=== PATIENT | male | born 1940 | race Caucasian/White ===

== ENCOUNTER → 2018-06-11 09:23 | Outpatient (CLI) | payer MEDICARE ==
[~2018-06-11 09:23] MED LIST: BAYER CHEWABLE81 MG PO; BRILINTA90 MG PO; EFFIENT10 MG PO; FIBERCON625 MG PO; NORVASC5 MG PO; PROBIOTIC250 MG PO; RANITIDINE HCL150 M1 PO; VITAMIN D31000 UNI2 PO; ZOCOR20 MG PO
[2018-06-20 12:08] VITALS: BMI 25.8
== END | disposition home or self-care (01) ==
LOC: D.HCCARDIO 09:23
DX: I20.9 Angina pectoris, unspecified (principal)

== ENCOUNTER 2018-06-20 11:31 | Outpatient (CLI) | payer MEDICARE ==
[~2018-06-20] VITALS: Ht 177.8 cm; Wt 81.8 kg
--- NOTE | ~2018-06-20 | HEMODYNAMI ---
PATIENT:PALU JARQUIN MEDICAL RECORD: [id number] : 42 LOCATION:[facility] ADMISSION DATE: 06/20/18 Generatedon:06/20/201816:01 Patient name: PAUL JARQUIN Patient #: [id number] SSN: : 1940 Date of study: 06/20/2018 Page: Of Hemodynamic Procedure Report Patient Data Patient Demographics Procedure consent was obtained First Name: PAUL Gender: Male Last Name: BRITTON : 1940 Middle Initial: RAY Age: 78 year(s) Patient #: [id number] Race: Unknown Additional ID: [id number] Contact details [address]: [address] [place] [address] ROAD State: [place] City: [place] Zip code: [address] Past Medical History Allergies Allergen Reaction Date Comments Reported Penicillins 06/20/2018 Admission Admission Data Admission Date: 06/20/2018 Admission Time: 11:31 Height (in.): 60 BSA: 1.79 (m2) Height (cm.): 152.4 BMI: 35.54 (kg/m2) Weight (lbs.): 182 Weight (kg.): 82.55 Lab Results Lab Result Date: 06/20/2018 Lab Result Time: 0:00 Biochemistry Name Units Result Min Max BUN mg/dl 15 --(--*-)-- 7 18 Creatinine mg/dl 0.8 --(-*--)-- 0.6 1.3 CBC Name Units Result Min Max Hemoglobin g/dl 15.7 --(--*-)-- 13.5 17.5 Procedure Procedure Types Cath Procedure Diagnostic Procedure C [facility] w/Coronaries PCI Procedure Coronary Stent Coronary Stent Initial Procedure Description Procedure Date Procedure Date: 06/20/2018 Procedure Start Time: 15:34 Procedure End Time: 15:58 Procedure Staff Name Function Prosper Lezama MD Performing Physician Prudencio Plummer RT Monitor Sandra Reyes RT Scrub Amilcar Morrow RN Nurse Procedure Data Cath Procedure Fluoroscopy Diagnostic fluoroscopy Total fluoroscopy Time: 6.6 time: 6.6 min min Diagnostic fluoroscopy Total fluoroscopy dose: 427 dose: 427 mGy mGy Contrast Material Contrast Material Type Amount (ml) Isovue 300 98 Entry Location Entry Primary Successful Side Size Upsize Upsize Entry Closure [place] ccessful Closure Location (Fr) 1 (Fr) 2 (Fr) Remarks Device Remarks Radial Right 6 Fr Mechanical artery Short Compression Estimated blood loss: 10 ml Diagnostic catheters Device Type Used For End Catheter Placement DIAGNOSTIC Amlin 110cm 5 Procedure Fr catheter (088407) Procedure Complications No complications Procedure Medications Medication Administration Route Dosage Oxygen etCO2 Nasal cannula 2 l/min Heparin Flush Bag added to field 2 bags (1000units/500ml NS) 0.9% NaCl I.V. 100 ml/hr Lidocaine 2% added to field 20 Radial Cocktail added to field 1 syringe (Verapomil 2mg/Nitro 400mcg/Heparin 1500units) Fentanyl I.V. 50 mcg Versed I.V. 1 mg Fentanyl I.V. 50 mcg Versed I.V. 1 mg Fentanyl I.V. 50 mcg Fentanyl I.V. 50 mcg Radial Cocktail I.A. 1 syringe (Verapomil 2mg/Nitro 400mcg/Heparin 1500units) Versed I.V. 1 mg Heparin Bolus I.V. 8000 units Versed I.V. 1 mg Effient P.O. 60 mg Hemodynamics Rest BSA: 1.79 (m2) HGB: 15.7 (g/dl) O2 Consumption: Estimated: 215.4 (ml/min) O2 Con sumption indexed: Estimated:120.34 (ml/min/m) Heart Rate: 85 (bpm) Pressure Samples Time Site Value (mmHg) Purpose Heart Use Rate(bpm) 15:36 LV 110/0,8 Snapshot 81 15:36 AO 85/51(63) Pullback 88 15:36 LV 111/-2,7 Pullback 88 15:38 AO 84/53(66) Snapshot 87 15:38 AO 92/56(72) Snapshot 92 Gradients Valve Time Site 1 Site 2 Mean SEP/DFP Peak To Heart Use (mmHg) (sec/min) Peak Rate (mmHg) (bpm) Aortic 15:36 LV AO 9 21 26 88 111/-2,7 85/51(63) Calculations Valve P-P Mean Valve Index Valve Source Name Gradient Area Flow (cm2) Aortic 26 9 26 9 Snapshots Pre Cath Intra NCS Post Cath Vital Signs Time Heart Resp SPO2 etCO2 NIBP (mmHg) Rhythm Pain Sedation Rate (ipm) (%) (mmHg) Status Level (bpm) 15:19:28 80 17 92 0 128/73(104) NSR 0 (11) 10(A) , No pain 15:23:44 82 16 93 0 130/82(110) NSR 0 (11) 10(A) , No pain 15:28:00 80 17 90 0 124/77(103) NSR 0 (11) 10(A) , No pain 15:32:14 84 16 94 0 116/69(91) NSR 0 (11) 10(A) , No pain 15:36:22 91 17 93 0 79/53(65) NSR 0 (11) 9(A) , No pain 15:41:07 93 18 94 0 114/69(89) NSR 0 (11) 9(A) , No pain 15:45:21 92 17 94 0 104/65(83) NSR 0 (11) 9(A) , No pain 15:49:28 92 16 95 0 94/75(91) NSR 0 (11) 9(A) , No pain 15:53:32 87 16 94 0 111/70(87) NSR 0 (11) 9(A) , No pain 15:57:44 87 16 87 0 103/71(87) NSR 0 (11) 9(A) , No pain 15:58:52 84 17 89 0 104/67(87) NSR 0 (11) 9(A) , No pain Medications Time Medication Route Dose Verified Delivered Reason Not es Effectiveness by by 15:18:31 Oxygen etCO2 2 l/min Prosper Amilcar Per physician Nasal Teja Morrow RN cannula 15:18:40 Heparin Flush added 2 bags Prosper Amilcar used for Bag to Teja Morrow RN procedure (1000units/500ml field NS) 15:18:50 0.9% NaCl I.V. 100 Prosper Amilcar Per physician ml/hr Teja Morrow RN 15:19:02 Lidocaine 2% added 20ml Prosper Amilcar for local to vial Teja Morrow RN anesthetic field 15:29:17 Radial Cocktail added 1 Prosper Amilcar used for (Verapomil to syringe Teja Morrow RN procedure 2mg/Nitro field 400mcg/Heparin 1500units) 15:29:27 Fentanyl I.V. 50 mcg Prosper Amilcar for sedation Teja Morrow RN 15:29:37 Versed I.V. 1 mg Prosper Amilcar for sedation Teja Morrow RN 15:31:58 Fentanyl I.V. 50 mcg Prosper Amilcar for sedation Teja Morrow RN 15:32:02 Versed I.V. 1 mg Prosper Amilcar for sedation Teja Morrow RN 15:34:25 Fentanyl I.V. 50 mcg Prosper Amilcar for sedation Teja Morrow RN 15:36:21 Radial Cocktail I.A. 1 Prosper Prosper for (Verapomil syringe Teja Lezama MD vasodilation 2mg/Nitro 400mcg/Heparin 1500units) 15:37:36 Fentanyl I.V. 50 mcg Prosper Amilcar for sedation Teja Morrow RN 15:43:35 Versed I.V. 1 mg Prosper Amilcar for sedation Teja Morrow RN 15:43:50 Heparin Bolus I.V. 8000 Prosper Amilcar for units Teja Morrow RN anticoagulation 15:53:08 Versed I.V. 1 mg Prosper Amilcar for sedation Teja Morrow RN 15:57:58 Effient P.O. 60 mg Prosper Amilcar for Teja Morrow RN antiplatelet therapy Procedure Log Time Note 14:48:16 Signed procedure consent form obtained from patient. 14:48:17 Diagnostic Cath status Elective 14:48:18 Time tracking: Regular hours (M-F 7:00 - 5:00) 14:48:21 Plan of Care:Hemodynamics will remain stable., Cardiac rhythm will remain stable., Comfort level will be maintained., Respiratory function will remain adequate., Patient/ family verbilizes understanding of procedure., Procedure tolerated without complication., Recovers from procedure without complications.. 14:48:32 H&P Date Dictated: 05/30/2018 Within 30 days and on chart., H&P Addendum completed by physician on day of procedure. (MUST COMPLETE FOR ALL OUTPATIENTS). 14:48:39 Patient allergic to Penicillins 14:49:29 Patient Height : 60 inches 14:49:33 Patient Weight : 182 lbs 14:50:10 Lab Result : BUN 15 mg/dl 14:50:10 Lab Result : Hemoglobin 15.7 g/dl 14:50:10 Lab Result : Creatinine 0.8 mg/dl 14:50:58 Amilcar Morrow RN sent for patient. Start room use. 15:06:46 Patient received from Pre/Post Procedure Room to CCL 3 Alert and oriented. Tansferred to table in Supine position. 15:06:48 Warm blankets applied, and gwendolyn hugger turned on for patient comfort. 15:06:49 Correct patient and procedure confirmed by team. 15:06:52 ECG and BP/O2 sat monitors applied to patient. 15:18:21 Vital chart was started 15:18:22 Baseline sample Acquired. 15:18:25 Rhythm: sinus rhythm 15:18:26 Full Disclosure recording started 15:18:26 Pre-procedure instructions explained to patient. 15:18:27 Pre-op teaching completed and patient verbalized understanding. 15:18:29 Family in patients room. 15:18:30 Patient NPO since Midnight. 15:18:31 Oxygen 2 l/min etCO2 Nasal cannula was administered by Amilcar Morrow RN; Per physician; 15:18:32 Is the patient allergic to Iodine/contrast media? No. 15:18:35 Is patient on blood thinner?No 15:18:36 Patient diabetic? No. 15:18:40 Heparin Flush Bag (1000units/500ml NS) 2 bags added to field was administered by Amilcar Morrow RN; used for procedure; 15:18:40 Previous problem with sedation/anesthesia? No ? 15:18:41 Snore? Yes 15:18:42 Sleep apnea? No 15:18:43 Deviated septum? No 15:18:44 Opens mouth fully? Yes 15:18:44 Sticks out tongue? Yes 15:18:46 Airway obstruction? No ? 15:18:48 Dentures? No ? 15:18:50 0.9% NaCl 100 ml/hr I.V. was administered by Amilcar Morrow RN; Per physician; 15:18:50 Pre procedure: right dorsailis pedis pulse 1+ Palpable, but thready & weak; easily obliterated 15:18:52 Modified Corey's test Ulnar < 7 seconds 15:18:54 Patient pain scale 0/10 ?. 15:18:59 IV patent on arrival in left forearm with 0.9% NaCl at [facility]. 15:19:01 Lab results completed and on chart. 15:19:02 Lidocaine 2% 20ml vial added to field was administered by Amilcar Morrow RN; for local anesthetic; 15:19:07 Right Radial & Right Groin area was prepped with chlora-prep and draped in sterile fashion 15:19:08 Alarms reviewed by R. N. 15:19:08 Sharps counted by scrub and verified by R.N. 15:19:12 Use device set Radial Dx or PCI 15:19:16 Tegaderm 4 x 4 (1626W) opened to sterile field. 15:19:18 ACIST Manifold (99676) opened to sterile field. 15:19:19 ACIST Hand Control (13847) opened to sterile field. 15:19:20 ACIST Syringe (82951) opened to sterile field. 15:19:20 Medline Cath Pack ([id number]) opened to sterile field. 15:19:21 Bag Decanter (2002S) opened to sterile field. 15:19:21 DIAGNOSTIC WIRE .035 260cm J wire (551489) opened to sterile field. 15:19:22 MBrace Wrist Support ([id number]) opened to sterile field. 15:19:26 NEEDLE Cook 21G 4cm Radial (K73080) opened to sterile field. 15:19:27 SHEATH 6FR Slender (39-3274) opened to sterile field. 15:28:13 Physician paged 15:28:35 --------ALL STOP TIME OUT------ 15:28:36 Final Timeout: patient, procedure, and site verified with staff and physician. All members of the team are in agreement. 15:28:39 Right Radial & Right Groin site verified by team. 15:28:44 Fire Safety Assessment: A--An alcohol-based skin anteseptic being used preoperatively., C--Open oxygen or nitrous oxide is being used., D--An ESU, laser, or fiber-optic light is being used. 15:28:46 Physical assessment completed. ASA score P 2 - A patient with mild systemic disease as per Prosper Lezama MD. 15:28:49 Sedation plan: IV Moderate Sedation Medication:Versed, Fentanyl 15:29:17 Radial Cocktail (Verapomil 2mg/Nitro 400mcg/Heparin 1500units) 1 syringe added to field was administered by Amilcar Morrow RN; used for procedure; 15:29:27 Fentanyl 50 mcg I.V. was administered by Amilcar Morrow RN; for sedation; 15:29:37 Versed 1 mg I.V. was administered by Amilcar Morrow RN; for sedation; 15:31:58 Fentanyl 50 mcg I.V. was administered by Amilcar Morrow RN; for sedation; 15:32:02 Versed 1 mg I.V. was administered by Amilcar Morrow RN; for sedation; 15:34:06 Procedure started. 15:34:15 Local anesthetic to right radial artery with Lidocaine 2% by Prosper Lezama MD.INITIAL ACCESS ONLY 15:34:25 Fentanyl 50 mcg I.V. was administered by Amilcar Morrow RN; for sedation; 15:35:30 A 6 Fr Short sheath was inserted into the Right Radial artery 15:35:38 A DIAGNOSTIC Amlin 110cm 5 Fr catheter (111291) was advanced over the wire and used for Procedure. 15:36:21 Radial Cocktail (Verapomil 2mg/Nitro 400mcg/Heparin 1500units) 1 syringe I.A. was administered by Prosper Lezama MD; for vasodilation; 15:36:39 LV angiography performed. 15:36:42 LV gram done using CUEVAS 15:37:02 EF : 55 % 15:37:06 LV hemodynamics recorded. 15:37:09 Injector settings: Ml/sec: 7, Volume: 15, 15:37:36 Fentanyl 50 mcg I.V. was administered by Amilcar Morrow RN; for sedation; 15:38:03 LCA angiography performed. 15:38:48 RCA angiography performed. 15:40:03 Catheter exchanged over wire. 15:40:08 Use device set LEZAMA PCI 15:40:10 GUIDE 6FR AR 1.0 catheter ([id number]) opened to sterile field. 15:40:17 TUBING High Pressure Extension Tubing (Teja) (HJ8344F) opened to sterile field. 15:40:18 INFLATOR Merit BasixCompak (AX2737) opened to sterile field. 15:40:21 BMW 300cm [place] 2 J wire ([id number]) opened to sterile field. 15:42:12 6 Fr AR 1 guide catheter was inserted over the wire 15:43:35 Versed 1 mg I.V. was administered by Amilcar Morrow RN; for sedation; 15:43:38 BMW wire advanced. 15:43:50 Heparin Bolus 8000 units I.V. was administered by Amilcar Morrow RN; for anticoagulation; 15:46:36 Wire advanced across lesion. 15:49:13 Place stent Inflation Number: 1 A KIARRA OTW 3.5 x 38 stent ([id number]) was prepped and advanced across the Mid RCA. The stent was deployed at 12 MORRIS for 0:10 (min:sec). 15:51:12 Stent catheter was removed intact over wire. 15:53:08 Versed 1 mg I.V. was administered by Amilcar Morrow RN; for sedation; 15:53:26 Place stent Inflation Number: 1 A KIARRA OTW 3.5 x 12 stent ([id number]) was prepped and advanced across the Prox RCA. The stent was deployed at 14 MORRIS for 0:10 (min:sec). 15:53:35 Stent catheter was removed intact over wire. 15:56:01 Wire removed. 15:56:03 Guide catheter removed. 15:56:08 TR BAND Standard ([id number]) opened to sterile field. 15:57:10 Sheath removed intact; hemostasis achieved with Mechanical Compression to the Right Radial artery. 15:57:12 Procedure ended.(Physican Out) 15:57:15 Fluoroscopy time 06.60 minutes. 15:57:20 Fluoroscopy dose: 427 mGy 15:57:20 Flurop Dose total: 427 15:57:24 Contrast amount:Isovue 300 98ml. 15:57:25 Sharps counted by scrub and verified by R.N. 15:57:28 TR band inflated with 11cc of air. 15:57:30 Insertion/operative site no bleeding no hematoma. 15:57:31 Post Procedure Pulses reassessed and unchanged 15:57:33 Post-procedure physical assessment completed. ASA score P 2 - A patient with mild systemic disease as per Prosper Lezama MD. 15:57:35 Post procedure rhythm: unchanged. 15:57:37 Estimated blood loss: 10 ml 15:57:39 Post procedure instruction explained to patient.Patient verbalizes understanding. 15:57:39 Patient needs reinforcement of post procedure teaching. 15:57:49 Procedure type changed to Cath procedure, Diagnostic procedure, LHC, LHC w/Coronaries, PCI procedure, Coronary Stent, Coronary Stent Initial 15:57:51 Procedure and supply charges have been captured, reviewed, submitted and are correct. 15:57:53 Procedure Complication : No complications 15:57:58 Effient 60 mg P.O. was administered by Amilcar Morrow RN; for antiplatelet therapy; 15:58:17 Vital chart was stopped 15:58:17 See physician's report for complete and final results. 15:58:19 Report given to Pre/Post Procedure Room. 15:58:22 Patient transfered to Pre/Post Procedure Room with Stretcher. 15:58:24 Procedure ended. 15:58:24 Full Disclosure recording stopped 16:01:04 End room use (Document Last) Intervention Summary Intervention Notes Time ActionType Lesion and Equipment Action# Pressure Duration Attributes Used 15:49:13 Place stent Mid RCA KIARRA OTW 3.5 1 12 00:10 x 38 stent ([id number]) 15:53:26 Place stent Prox RCA KIARRA OTW 3.5 1 14 00:10 x 12 stent ([id number]) Device Usage Item Name Manufacture Quantity Catalog Hospital Part Current Mini [facility] Lot# / Number Charge Number Stock Stock Serial# Code Tegaderm 4 x 3M 1 1626W [id number] 197544 261201 5 4 (1626W) ACIST Acist 1 81993 456582 754482 908010 5 Manifold Medical (59130) Systems Inc ACIST Hand Acist 1 61051 859095 301108 666721 5 Control Medical (30633) Systems Inc ACIST Syringe Acist 1 70296 718732 505640 977623 20 (60837) Medical Systems Inc Medline Cath Medline 1 [id number] 414055 01730 668135 5 Pack ([id number]) Bag Decanter Microtek 1 2001S 575147 72830 890394 5 (2001S) Medical Inc. DIAGNOSTIC St Rakes[place] 1 413447 842813 616124 349592 30 WIRE .035 260cm J wire (071734) MBrace Wrist Advanced 1 140-0250-00 981993 06788 133407 5 Support Vascular (114204487) Dynamics NEEDLE Cook Cook Medical 1 D62236 093221 983921 614940 5 21G 4cm Radial (W74352) SHEATH 6FR Terumo 1 [id number] 635473 453705 523467 5 Slender (80-1060) DIAGNOSTIC Terumo 1 40-5013 990315 951461 671975 5 Amlin 110cm 5 Fr catheter (303615) GUIDE 6FR AR Medtronic 1 [id number] 287420 75596 214044 1 1.0 catheter (JW9PY93) TUBING High Merit 1 [id number] 753477 88045 857132 10 Pressure Medical Extension Tubing (Lezama) (CE2131N) INFLATOR Merit 1 MJ7652 537447 175469 546181 15 Merit Medical BasixCompak (LV4481) BMW 300cm [place] 1 [id number] 094270 634941 808811 5 [place] 2 J Vascular wire (1882311H) KIARRA OTW 3.5 Medtronic 1 [id number] 476902 9487181 036975 5 [id number] x 38 stent ([id number]) KIARRA OTW 3.5 Medtronic 1 [id number] 145105 5123985 522995 5 [id number] x 12 stent ([id number]) TR BAND Terumo 1 [id number] 506427 199470 817517 40 Standard ([id number]) Signature Audit [place] Stage Time Signature Unsigned Intra-Procedure 06/20/2018 Prudencio Plummer 4:01:29 PM RT(R) Signatures Monitor : Prudencio Plummer RT Signature : Date : Time : [facility] [address] [place] [address]
[2018-06-20] MEDS ORDERED: NORVASC5 MG PO (11:54)
[2018-06-20] MEDS ORDERED: RANITIDINE HCL150 M1 PO (11:54)
[2018-06-20] MEDS ORDERED: ZOCOR20 MG PO (11:54)
[2018-06-20] MEDS ORDERED: BAYER CHEWABLE81 MG PO (11:54)
[2018-06-20] MEDS ORDERED: VITAMIN D31000 UNI2 PO (11:55)
[2018-06-20] MEDS ORDERED: FIBERCON625 MG PO (11:55)
[2018-06-20] MEDS ORDERED: PROBIOTIC250 MG PO (11:55)
[2018-06-20 12:08] VITALS: BP 160/75; Ht 177.8 cm; Wt 81.8 kg
[2018-06-20 12:11] LABS: BASOPHILS 0.5 % (0-2); EOSINOPHILS 3.7 % (0-7); HEMATOCRIT 45.1 % (42.0-54.0); HEMOGLOBIN 15.7 g/dL (13.5-17.5); IMMATURE GRANULOCYTES 0.5 % (0-5); LYMPHOCYTES 19.9 % (15-50); MCH 29.1 pg (26.0-34.0); MCHC 34.8 g/dL (31.0-37.0); MCV 83.7 fL (80.0-100.0); MEAN PLATELET VOLUME 9.7 fL (7.4-10.4); MONOCYTES 6.6 % (2-11); NEUTROPHILS 68.8 % (40-80); PLATELET COUNT 178 10x3/uL (130-400); RBC 5.39 10x6/uL (4.20-6.10); RDW 12.7 % (11.5-14.5); WBC 5.6 10x3/uL (4.8-10.8)
[2018-06-20 12:25] LABS: CALC OSMOLALITY 279 mosm/kg (275-300); CALCIUM 8.7 mg/dL (8.5-10.1); CARBON DIOXIDE 24.8 mmol/L (21.0-32.0); CHLORIDE - SERUM 102 mmol/L (98-107); CREATININE - SERUM 0.8 mg/dL (0.6-1.3); GLUCOSE 105 mg/dL (74-106); POTASSIUM - SERUM 3.7 mmol/L (3.5-5.1); SODIUM 140 mmol/L (136-145); UREA NITROGEN 15 mg/dL (7-18); eGFR NON AFRICAN AMERICAN > 90 mL/min (90-120)
[2018-06-20] MEDS ORDERED: BRILINTA90 MG PO (16:21)
[2018-06-20] MEDS ORDERED: EFFIENT10 MG PO (16:26)
--- NOTE | 2018-06-20 16:30 | NUR ---
RIGHT RADIAL Z BAND IN PLACE. NO BLEEDING/HEMATOMA NOTED.
--- NOTE | 2018-06-20 17:00 | NUR ---
RIGHT RADIAL TR BAND IN PLACE. NO BLEEDING/HEMATOMA NOTED. VSS. FAMILY AT BEDSIDE.
--- NOTE | 2018-06-20 17:30 | NUR ---
RIGHT RADIAL TR BAND IN PLACE. NO BLEEDING/HEMATOMA NOTED. VSS.
--- NOTE | 2018-06-20 18:15 | NUR ---
VSS. RIGHT RADIAL TR BAND IN PLACE. NO BLEEDING/HEMATOMA NOTED.
--- NOTE | 2018-06-20 18:45 | NUR ---
3cc OF AIR REMOVED FROM TR BAND. NO BLEEDING/HEMATOMA NOTED. VSS.
--- NOTE | 2018-06-20 19:11 | NUR ---
3cc OF AIR REMOVED FROM TR BAND. TOLERATING WELL. NO BLEEDING/HEMATOMA NOTED.
--- NOTE | 2018-06-20 19:19 | NUR ---
LEFT FA PIV D/C'D WITH CATH TIP INTACT. PT TOLERATED WELL. VSS AT THIS TIME. RIGHT RADIAL TR BAND IN PLACE. NO BLEEDING/HEMATOMA NOTED.
--- NOTE | 2018-06-20 19:25 | NUR ---
TR BAND REMOVED AND DRESSING APPLIED. NO BLEEDING/HEMATOMA NOTED. DISUCSSED DISCHARGE INSTRUCTIONS WITH PT AND PT'S FAMILY. THEY VOICED UNDERSTANDING.
--- NOTE | 2018-06-20 19:30 | NUR ---
PT TAKEN OUT BY WHEELCHAIR. STOPPED AT RESTROOM AND VOIDED WITHOUT DIFFICULTY. NO S/S OF DISTRESS NOTED. PT HAS ALL BELONGINGS IN HAND. RIGHT WRIST BRACE IN PLACE. NO BLEEDING/HEMATOMA NOTED.
== END 2018-06-20 19:30 | disposition home or self-care (01) ==
LOC: D.CATH 11:31
PROVIDERS: Internal Medicine Cardiovascular Disease
DX: I25.119 Atherosclerotic heart disease of native coronary artery with unspecified angina pectoris (principal); R94.39 Abnormal result of other cardiovascular function study
CPT/HCPCS: 93458; C9600